=== PATIENT | female | born 1970 | race Caucasian/White ===

== ENCOUNTER 2024-01-17 15:45 | Emergency (ER) | payer BC, SELFPAY ==
[2024-01-17 15:46] VITALS: BP 186/143
--- NOTE | 2024-01-17 16:21 | ED.GENMED ---
History of Present Illness
General
Chief Complaint: Chest Pain
Source: patient
Exam Limitations: none
Time Seen by Provider: 01/17/24 15:59
Nursing documentation reviewed up to this point in time: agreed with
History of Present Illness
History of Present Illness:
Patient is a 53-year-old female who presents to the ER for evaluation. She reports yesterday around 6/7 PM shortly after eating dinner(Pasta and [place] hamburger) she developed right-sided lateral chest pain that went into her right breast
down her right arm and into her right back. She had no associated shortness of breath with this and it resolved after 20 minutes. She denies any nausea vomiting sweating. Today she was walking after eating lunch in [place], [place] her and her
significant other were walking she reports not strenuously when she developed pain again same type in her right chest and right breast her arm and back. She was nauseous with this. She reports lasted for about 30 minutes.
She has not past medical cardiac history. She is a history of PCOS takes metformin migraine takes preventive propranolol and Relpax and she is on oral contraceptives. She does not smoke. She did take her Relpax today x 2 because of migraine.
Review of Systems
Review of Systems
Allergies reviewed?: Yes
All Other Systems: ROS reviewed and negative except as documented in HPI and ROS
Constitutional: Reports no symptoms; Denies fever, fatigue or chills
Respiratory: Reports no symptoms; Denies trouble breathing
Cardiac: Reports chest pain; Denies diaphoresis, palpitations or syncope
ABD/GI: Reports nausea; Denies vomiting
: Reports no symptoms
Musculoskeletal: Reports no symptoms
Skin: Reports no symptoms
Neurological: Reports no symptoms
Psychiatric: Reports no symptoms
Phy Exam
General Physical Exam
General Presentation: no apparent distress
General Skin: warm and dry
General Habitus: normal
General Mental: alert
General Hydration: appears well hydrated
Cardiovascular Exam
Cardiovascular Exam: regular rate/rhythm, no murmur and normal peripheral pulses
Pulmonary Exam
Pulmonary Exam: lungs clear, no respiratory distress and other (Chest nontender no crepitus)
Neurological Exam
Neurological Exam: alert and oriented x3
Musculoskeletal Exam
Musculoskeletal Exam: full ROM
Scores
Heart Score for Chest Pain Patients
STEMI patient?: Not applicable
Course
Orders/Labs/Results
Orders:
Orders
01/17/24 15:49
Electrocardiogram (*1) Urgent
Reason for Study: Chest Pain
01/17/24 16:20
Electrocardiogram (*1) Stat
Reason for Study: Other
Other Reason for Exam: chest pain
Cardiac Monitoring- Treatment ONCE
EKG- Treatment ONCE
UA Reflex to Culture [Urinalysis Reflex To Culture] Urgent
01/17/24 16:34
Complete Blood Count/With Diff Urgent
Comprehensive Metabolic Panel Urgent
D-Dimer Urgent
Prothrombin Time Urgent
Troponin I Urgent
01/17/24 17:23
Chest [CR Chest - 2 Views ] Urgent
Comment:
Reason For Exam: chest
01/17/24 17:42
0.9% Sodium Chloride 1000 ml [Nss] 1,000 ml IV BOLUS
Ketorolac [Toradol] 15 mg IV NOW STA
01/17/24 19:40
Troponin I Urgent
01/17/24 20:17
Electrocardiogram (*1) Stat
Reason for Study: Other
Other Reason for Exam: chest pain
EKG- Treatment ONCE
Abnormal Lab Results
01/17/24
16:34
Calcium 11.3 H mg/dl
(8.4-10.2)
AST 44 H U/L
(14-36)
ALT 61 H U/L
(0-35)
01/17/24 16:34
01/17/24 16:34
Vital Signs
Initial and Last Documented VS:
Initial Vital Signs
Temp Pulse Resp BP Pulse Ox
97.5 F 124 18 186/143 97
01/17/24 15:46 01/17/24 15:46 01/17/24 15:46 01/17/24 15:46 01/17/24 15:46
Last Documented Vital Signs
Temp Pulse Resp BP Pulse Ox
97.5 F 113 13 168/98 99
01/17/24 15:46 01/17/24 20:00 01/17/24 20:00 01/17/24 20:00 01/17/24 20:00
[employer] Worker consulted with Physician
[employer] Worker consulted with physician?: Yes
Name of Physician Consulted: Radha
MDM/Problems Addressed
Differential Diagnosis Includes:
Not limited to musculoskeletal pain, unstable angina, less likely PE
MDM/Problems Addressed:
Patient is a 53-year-old female who presented with chest pain. She had an episode last evening and then again today. She felt pain in the right lateral chest into the right breast down her right arm and right back. She no associated shortness of
breath with it. She was nauseous with it today. Patient has no history of CAD. She does not smoke as documented she is on oral contraceptives however no shortness of breath or lower extremity swelling. No injury. Denies any recent fever or
chills. She presents awake alert in no acute distress pain was resolving upon exam. She was monitored here and chest pain did not recur. She is afebrile with a normal white count stable labs. Patient was kept for 2 cardiac troponins both of
which were negative. Patient was found to be mildly tachycardic here in the ER but does report she internalizes stress she is not short of breath and had a negative D-dimer. Patient is not tachypneic none hypoxic.with pain completely resolved s/s
not consistent w/ disection.
Looks well. Patient does mention that she saw manager development years for palpitations and panic attacks. Institutional Nutrition Consultant is not associate with this hospital it has been years and she is not able to tell me which manager development she saw therefore placed on
the chest pain hotline. Patient eval by ED physician.
*Radiology
Radiology exam reviewed: radiology read reviewed
*Pulse Oximetry
Patient hypoxic: no
*EKG
Interpretation: normal
Heart Rate: 117
Rate: tachycardiac
Rhythm: sinus
Ischemia: no ischemia
*Critical Care Note
Total Time (30-74mins, 75-104mins- exclusive of procedures): Not Applicable
ED Attending Note
-
Portions of this chart may have been created with voice recognition software.� Occasional wrong word or��sound alike� substitutions may have occurred due to the inherent limitations of voice recognition software.
Discharge Plan
Departure
Patient Disposition: Home (Routine Discharge)
Date of Disposition: 01/17/24
Time of Disposition: 20:33
Patient with high blood pressure during this ER visit?: Yes
Condition: Fair
Covid-19: Not Applicable
Discharge Problem:
Chest pain
Instructions: Chest Pain CBC Follow Up
Referrals:
Roberto Bradley MD [Active] -
Corky Ahmadi MD [Family Provider] -
Activity Restrictions/Additional Instructions:
Follow-up with cardiology as discussed you are placed on the chest pain hotline which means you should receive a phone call from the office in the next several days however if you do not please reach out to the cardiology office to schedule an
appointment. Return to the ER if any worsening of symptoms
Interventions
Interventions:
*Risk Screen - Suicide Last Done: 01/17/24 16:41
*General Assessment Last Done: 01/17/24 16:41
*Neglect/Abuse Screening Last Done: 01/17/24 16:41
ED- Fall Risk Assessment Last Done: 01/17/24 16:41
ED- Cardiac Assessment Last Done: 01/17/24 16:41
Discharge Date and Time
Print Language: DANISH
[2024-01-17 16:38] VITALS: BP 158/114
[2024-01-17 16:40] VITALS: BMI 36.6
[2024-01-17 16:46] LABS: % Basophils 0.4 % (0-2); % Eosinophils 0.4 % (0-6); % Immature Granulocytes 0.4 % (0-0.5); % Lymphocytes 29.7 % (20.5-51.1); % Monocytes 6.4 % (1.7-9.3); % Neutrophils 62.7 % (42.2-75.2); Absolute Lymphocytes 2.9 10^3/uL (1.2-3.4); Absolute Monocytes 0.6 10^3/uL (0.1-0.6); Absolute Neutrophils 6.1 10^3/uL (1.4-6.5); Hematocrit 40.5 % (37.0-47.0); Hemoglobin 13.6 g/dL (12.0-16.0); Mean Corp Hgb Conc. 33.6 g/dL (33.0-37.0); Mean Corpuscular Volume 89.2 fL (81.0-99.0); Mean Platelet Volume 10.4 fL (7.4-10.4); Nucleated Red Blood Cells % 0 %; Platelet Count 268 10^3/uL (130-400); Red Blood Cell Count 4.54 10^6/uL (4.20-5.40); White Blood Cell Count 9.8 10^3/uL (4.8-10.8)
[2024-01-17 16:59] LABS: ALT (SGPT) 61 U/L (0-35); AST (SGOT) 44 U/L (14-36); Albumin 4.7 g/dl (3.5-5.0); Alkaline Phosphatase 61 U/L (38-126); Blood Urea Nitrogen 14 mg/dl (7-17); Calcium 11.3 mg/dl (8.4-10.2); Carbon Dioxide 25 mmol/L (22-30); Chloride 106 mmol/L (98-107); Estimated Creatinine Clearance 97 ml/min; Glucose 99 mg/dl (70-99); Potassium 4.6 mmol/L (3.5-5.1); Sodium 139 mmol/L (135-145); Total Bilirubin 0.5 mg/dl (0.2-1.3); Total Protein 7.4 g/dl (6.3-8.2); eGFR > 60.00
[2024-01-17 17:00] VITALS: BP 158/118
[2024-01-17 17:00] LABS: INR 0.97; PT 12.7 Sec (11.4-14.6)
[2024-01-17 17:02] LABS: D-Dimer 0.37 ug/mlFEU (0.00-0.50)
[2024-01-17 17:08] LABS: Troponin I < 0.012 ng/ml
[2024-01-17] MEDS: TORADOL 15 MG IV (17:47)
[2024-01-17] MEDS: NSS 1000 IV (17:47)
[2024-01-17 18:00] VITALS: BP 167/104
[2024-01-17 19:00] VITALS: BP 176/109
[2024-01-17 20:00] VITALS: BP 168/98
[2024-01-17 20:10] LABS: Troponin I < 0.012 ng/ml
== END 2024-01-17 20:39 | disposition home or self-care (01) ==
LOC: EMR 15:45
PROVIDERS: Nurse Practitioner; EMERGENCY PHYSICIAN Emergency Medicine; FAMILY PHYSICIAN Family Medicine
DX: R07.89 Other chest pain (principal); E28.2 Polycystic ovarian syndrome; F41.0 Panic disorder [episodic paroxysmal anxiety]
CPT/HCPCS: 99283; 96374; 71046; 80053; 84484; 85025; 85379; 85610; 93005

== ENCOUNTER → 2024-07-11 16:12 | Outpatient (REF) | payer BC, SELFPAY | LOC: HWRCS 16:12 | PROVIDERS: ATTENDING PHYSICIAN Internal Medicine Interventional Cardiology; FAMILY PHYSICIAN Family Medicine | DX: R07.89 Other chest pain (principal); R00.2 Palpitations; I10 Essential (primary) hypertension | CPT/HCPCS: 93306 ==